=== PATIENT | male | born 1985 | race Hispanic/Latino ===

== ENCOUNTER 2017-09-14 22:48 | Emergency (ER) | payer OTHER ==
[2017-09-15 00:03] LABS: Absolute Lymphocytes (CBC) 1.1 K/uL (0.7-4.9); Absolute Monocytes 0.4 K/uL (0.1-1.3); Absolute Neutrophil 4.7 K/uL (1.8-8.0); Basophils % 0.5 % (0-1.3); Eosinophils % 1.3 % (0-4.4); Hematocrit 41.8 % (39.6-49.0); MCH 30.7 pg (27.0-35.0); MCV 92.1 fL (80-100); MPV 8.4 fL (7.6-11.3); RBC Red Blood Cell Count 4.54 M/uL (4.33-5.43)
[2017-09-15 00:05] LABS: Protime INR 1.06
[2017-09-15 00:10] LABS: Bicarbonate 27 mEq/L (21-31); Glucose Level 123 mg/dL (65-120); Potassium 3.2 mEq/L (3.6-5.0); Sodium Level 138 mEq/L (135-145)
[2017-09-15 00:16] LABS: ALT/SGPT 16 IU/L (10-60); AST/SGOT 24 IU/L (10-42); Albumin 4.5 g/dL (3.2-5.5); Alkaline Phosphatase 83 IU/L (42-121); BUN Blood Urea Nitrogen 16 mg/dL (6-20); Bilirubin Direct 0.1 mg/dL (0-0.2); Protein, Total 8.2 g/dL (6.0-8.3)
[2017-09-15 00:17] LABS: Alcohol Serum/Plasma < 10 mg/dl; Salicylates Level < 4.0 mg/dl (<30)
[2017-09-15 03:43] LABS: Barbiturates NEGATIVE; Benzodiazepines POSITIVE; Cocaine NEGATIVE; METHAMPHETAM NEGATIVE; Opiates NEGATIVE; Phencyclidine NEGATIVE; THC Cannibis NEGATIVE
[2017-09-15 03:48] LABS: Urine Blood NEGATIVE (NEG); Urine Glucose NEGATIVE (NEG); Urine Protein NEGATIVE (NEG); Urine Specific Gravity 1.025 (1.005-1.030)
--- NOTE | 2017-09-15 12:21 | EDPHYS ---
Physician Documentation [facility] Name: Nikko Bales Age: 32 yrs Sex: Male : 1985 Arrival Date: 09/14/2017 Time: 22:51 Bed 19 Private MD: ED Physician Corky Wilcox HPI: 09/14 23:15 This 32 yrs old Male presents to ER via EMS with unknown complaint. pkl 23:15 The patient presents to the emergency department with combative. Onset: The pkl symptoms/episode began/occurred 3 day(s) ago, Family decided to call ambulance tonight. Past psychiatric history: Prior diagnosis: schizophrenia. Historical: - Allergies: 22:56 No Known Allergies; bp - Home Meds: 22:56 Geodon 40 mg Oral cap 1 cap 2 times per day [Active]; levothyroxine 75 mcg tab 1 tab bp once daily [Active]; - PMHx: 22:56 Hypothyroidism; Schizophrenia; bp - Immunization history:: Adult Immunizations up to date. - Social history:: Smoking status: Patient/guardian denies using tobacco. ROS: 23:15 Eyes: Negative for injury, pain, redness, and discharge, ENT: Negative for injury, pkl pain, and discharge, Neck: Negative for injury, pain, and swelling, Cardiovascular: Negative for chest pain, palpitations, and edema, Respiratory: Negative for shortness of breath, cough, wheezing, and pleuritic chest pain, Abdomen/GI: Negative for abdominal pain, nausea, vomiting, diarrhea, and constipation, Back: Negative for injury and pain, : Negative for injury, bleeding, discharge, and swelling, MS/Extremity: Negative for injury and deformity, Skin: Negative for injury, rash, and discoloration, Neuro: Negative for headache, weakness, numbness, tingling, and seizure. 23:15 Psych: Positive for Aggressive behavior, combative. Exam: 23:15 Head/Face: Normocephalic, atraumatic. Eyes: Pupils equal round and reactive to light, pkl extra-ocular motions intact. Lids and lashes normal. Conjunctiva and sclera are non-icteric and not injected. Cornea within normal limits. Periorbital areas with no swelling, redness, or edema. ENT: Nares patent. No nasal discharge, no septal abnormalities noted. Tympanic membranes are normal and external auditory canals are clear. Oropharynx with no redness, swelling, or masses, exudates, or evidence of obstruction, uvula midline. Mucous membranes moist. Neck: Trachea midline, no thyromegaly or masses palpated, and no cervical lymphadenopathy. Supple, full range of motion without nuchal rigidity, or vertebral point tenderness. No Meningismus. Chest/axilla: Normal chest wall appearance and motion. Nontender with no deformity. No lesions are appreciated. Cardiovascular: Regular rate and rhythm with a normal S1 and S2. No gallops, murmurs, or rubs. Normal PMI, no JVD. No pulse deficits. Respiratory: Lungs have equal breath sounds bilaterally, clear to auscultation and percussion. No rales, rhonchi or wheezes noted. No increased work of breathing, no retractions or nasal flaring. Abdomen/GI: Soft, non-tender, with normal bowel sounds. No distension or tympany. No guarding or rebound. No evidence of tenderness throughout. Back: No spinal tenderness. No costovertebral tenderness. Full range of motion. Skin: Warm, dry with normal turgor. Normal color with no rashes, no lesions, and no evidence of cellulitis. MS/ Extremity: Pulses equal, no cyanosis. Neurovascular intact. Full, normal range of motion. Neuro: Awake and alert, GCS 15, oriented to person, place, time, and situation. Cranial nerves II-XII grossly intact. Motor strength 5/5 in all extremities. Sensory grossly intact. Cerebellar exam normal. Normal gait. 23:15 Psych: Behavior/mood is aggressive, combative. Vital Signs: 22:59 BP 119 / 75; Pulse 95; Resp 16; Pulse Ox 96% ; Weight 90.72 kg; bp 05/01 00:03 BP 121 / 69; Pulse 86; Resp 22; Pulse Ox 100% on R/A; mt 00:51 BP 118 / 65; Pulse 75; Resp 16; Pulse Ox 99% on R/A; mt 01:28 BP 121 / 67; Pulse 71; Resp 22; Pulse Ox 100% ; bp 02:19 BP 122 / 76; Pulse 91; Resp 18; Pulse Ox 99% on R/A; mt 02:56 BP 124 / 76; Pulse 91; Resp 16; Pulse Ox 99% on R/A; mt 04:20 BP 123 / 68; Pulse 88; Resp 18; Pulse Ox 99% on R/A; mt 05:35 BP 127 / 86; Pulse 78; Resp 18; Pulse Ox 99% on R/A; mt 07:00 BP 126 / 67; Pulse 75; Resp 16; Pulse Ox 99% ; Pain 0/10; jl7 09:33 BP 123 / 67; Pulse 79; Resp 16; Pulse Ox 99% ; jl7 11:06 BP 110 / 70; Pulse 78; Resp 18; Pulse Ox 97% on R/A; 5 MDM: 09/14 23:09 Patient medically screened. pkl 09/14 23:44 Order name: Acetaminophen; Complete Time: 00:31 pkl 09/14 23:44 Order name: Basic Metabolic Panel; Complete Time: 00:31 pkl 09/14 23:44 Order name: CBC with Diff; Complete Time: 00:31 pkl 09/14 23:44 Order name: ETOH Level; Complete Time: 00:31 pkl 09/14 23:44 Order name: Hepatic Function; Complete Time: 00:31 pkl 09/14 23:44 Order name: PT-INR; Complete Time: 00:31 pkl 09/14 23:10 Order name: Restraint:Violent/Self Destructive (Adult:18yo or >); Complete Time: 23:10 bp 09/14 23:44 Order name: Ptt, Activated; Complete Time: 00:31 pkl 09/14 23:44 Order name: Salicylate; Complete Time: 00:31 pkl 09/14 23:44 Order name: Urine Drug Screen; Complete Time: 05:50 pkl 09/14 23:44 Order name: EKG; Complete Time: 23:45 pkl 09/14 23:44 Order name: EKG - Nurse/Tech; Complete Time: 23:59 pkl 09/15 03:30 Order name: Urine Dipstick--Ancillary (enter results); Complete Time: 05:50 em1 09/14 23:44 Order name: IV Saline Lock; Complete Time: 00:12 pkl 09/14 23:44 Order name: Labs collected and sent; Complete Time: 23:50 pkl 09/14 23:44 Order name: Urine Dipstick-Ancillary (obtain specimen); Complete Time: 03:28 pkl Administered Medications: 09/15 06:42 Not Given (Patient Refused): K-Dur 40 mEq PO once bp Disposition: 09/15/17 12:21 Transfer ordered to Other Acute Care Facility. Diagnosis is Schizophrenia. - Reason for transfer: Higher level of care. - Accepting physician is [facility]. - Condition is Stable. Signatures: Dispatcher [employer] Corky Cid MD MD pkl Leal, Jahala, RN RN [id number] Alex Cortez RN RN bp
--- NOTE | 2017-09-15 12:21 | ER ---
Nurse's Notes [facility] Name: Nikko Bales Age: 32 yrs Sex: Male : 1985 Arrival Date: 09/14/2017 Time: 22:51 Bed 19 Private MD: Diagnosis: Schizophrenia Presentation: 09/14 22:54 Presenting complaint: EMS states: WE GOT CALLED OUT BECAUSE HE WAS COMBATIVE WITH THE bp FAMILY. Transition of care: patient was not received from another setting of care. Onset of symptoms is unknown. Initial Sepsis Screen: Does the patient meet any 2 criteria? No. Patient's initial sepsis screen is negative. Does the patient have a suspected source of infection? No. Patient's initial sepsis screen is negative. Care prior to arrival: Medication(s) given: 2MG ATIVAN IM. 22:54 Method Of Arrival: EMS: [facility] bp 22:54 Acuity: JUAN CARLOS 2 bp Triage Assessment: 22:56 General: Appears distressed, comfortable, Behavior is agitated, combative, bp uncooperative. Pain: Denies pain. EENT: No deficits noted. Neuro: Level of Consciousness is REFUSING TO ANSWER. Oriented to REFUSING TO ANSWER. Cardiovascular: No deficits noted. Respiratory: Airway is patent Respiratory effort is even, unlabored, Respiratory pattern is regular, symmetrical. GI: No signs and/or symptoms were reported involving the gastrointestinal system. : No signs and/or symptoms were reported regarding the genitourinary system. Derm: No deficits noted. Musculoskeletal: Circulation, motion, and sensation intact. Range of motion: intact in all extremities. Historical: - Allergies: 22:56 No Known Allergies; bp - Home Meds: 22:56 Geodon 40 mg Oral cap 1 cap 2 times per day [Active]; levothyroxine 75 mcg tab 1 tab bp once daily [Active]; - PMHx: 22:56 Hypothyroidism; Schizophrenia; bp - Immunization history:: Adult Immunizations up to date. - Social history:: Smoking status: Patient/guardian denies using tobacco. Screenin:10 Abuse screen: Denies threats or abuse. Denies injuries from another. Nutritional bp screening: No deficits noted. Tuberculosis screening: No symptoms or risk factors identified. Fall Risk None identified. Assessment: 23:05 General: Appears PT COMBATIVE WITH EMS ON SCENE. ON ARRIVAL PT REFUSING TO STAY IN BED. bp PT STATES "I WANNA SPIT." PT PROVIDED WITH EMESIS BAG. PT THEN STATED "I WANNA SPIT ON YOU" AND SPIT ON STAFF. PT PHYSICALLY ESCORTED BACK TO ROOM AND INSTRUCTED TO STAY IN ROOM. PT EXITED ROOM AND SPIT ON STAFF AGAIN. PT REMOVED FROM COMMON AREA AND ESCORTED BACK TO ROOM. SURGICAL MASK AND 4 POINT RESTRAINTS PLACED FOR STAFF SAFETY. 09/15 00:00 Reassessment: PT SEEN BY MENTAL HEALTH DEPUTY. MENTAL HEALTH DEPUTY DECLINED TO TRANSPORT PT TO MENTAL HEALTH FACILITY WITHOUT MEDICAL SCREENING. PT REMAINS UNCOOPERATIVE, SPEECH PRESSURED AND RAMBLING. 01:27 Reassessment: [facility] SCREENER PENDING. PT CONTINUING TO REFUSE VERBAL DIRECTION AND bp DE-ESCALATION. 02:30 Reassessment: [facility] SCREENER AT B/S. PT SPEECH PRESSURED, LOUD AND RAMBLING. bp 03:00 Reassessment: [facility] RECOMMENDING INPATIENT. PT NOT ABLE TO VERBALIZE RESTRAINT bp RELEASE CRITERIA, BUT FOLLOWING VERBAL REDIRECTION. RESTRAINTS RELEASED AT THIS TIME. 04:57 Reassessment: ALL CURRENT STUDIES COMPLETED, PT RESTING QUIETLY, FAMILY AT B/S. bp AWAITING RESPONSE FOR PSYCHIATRIC FACILITIES. 05:02 Reassessment: REPORT TO [facility], NURSE TO NURSE. bp 07:00 Reassessment: Pt laying in bed with eyes closed, respiration even and unlabored, no jl7 signs of distress noted at this time. 08:00 Reassessment: No changes from previously documented assessment. jl7 09:00 Reassessment: Pt sitting in bed eating, denies discomfort at this time. jl7 10:00 Reassessment: Pt's parent's at the bedside. jl7 Vital Signs: 09/14 22:59 BP 119 / 75; Pulse 95; Resp 16; Pulse Ox 96% ; Weight 90.72 kg; bp 09/15 00:03 BP 121 / 69; Pulse 86; Resp 22; Pulse Ox 100% on R/A; mt 00:51 BP 118 / 65; Pulse 75; Resp 16; Pulse Ox 99% on R/A; mt 01:28 BP 121 / 67; Pulse 71; Resp 22; Pulse Ox 100% ; bp 02:19 BP 122 / 76; Pulse 91; Resp 18; Pulse Ox 99% on R/A; mt 02:56 BP 124 / 76; Pulse 91; Resp 16; Pulse Ox 99% on R/A; mt 04:20 BP 123 / 68; Pulse 88; Resp 18; Pulse Ox 99% on R/A; mt 05:35 BP 127 / 86; Pulse 78; Resp 18; Pulse Ox 99% on R/A; mt 07:00 BP 126 / 67; Pulse 75; Resp 16; Pulse Ox 99% ; Pain 0/10; jl7 09:33 BP 123 / 67; Pulse 79; Resp 16; Pulse Ox 99% ; jl7 11:06 BP 110 / 70; Pulse 78; Resp 18; Pulse Ox 97% on R/A; 5 ED Course: 09/14 22:51 Patient arrived in ED. em1 22:54 Alex Cortez, RN is Primary Nurse. bp 22:56 Triage completed. bp 22:59 Arm band placed on left wrist. bp 23:09 Corky Wilcox MD is Attending Physician. pkl 23:10 Patient has correct armband on for positive identification. Bed in low position. Call bp light in reach. Side rails up X2. 09/15 00:00 Missed attempt(s): 20 gauge Bleeding controlled, band aid applied, catheter tip intact. bp 07:12 Primary Nurse role handed off by Alex Cortez, RN jl7 07:12 Britni Lewis, RN is Primary Nurse. jl7 09:36 Spoke with [facility] to let them know the patient has been off restraints for 6 ag hours. She will notify their powerhouse engineer and will re initiate transfer. She will call us back. 12:15 No provider procedures requiring assistance completed. Patient did not have IV access jl7 during this emergency room visit. Restraints: 09/14 23:00 Violent/Self Destructive Restraint: Order: obtained. Initiated September 14, 2017 at 23:00 bp Staff present during the Initiation of Restraint: ALEA PCT, MARTHA PCT, KENNETH RN, ADONIS GARRISON, CHRISTOPHE RN. Family Notification/Education: Education provided to family/significant other/legally authorized sales representative meats. Observed actions/behavior: severely aggressive, confusion/disorientation, difficulty remembering or follow instructions, impaired decision making, repeated attempts to get up from bed/chair without assistance. unable to follow instructions, Less restrictive alternatives attempted: decreased environmental stimuli, placed near Nurse station, reoriented to location, medicated for pain/anxiety, verbal de-escalation performed, Alternative interventions: Ineffective. Clinical justification for use: Violent/self destructing behavior impacts therapeutic environment. Poses a serious danger to physical safety of self \\T\\ others. Monitoring: Mental status: agitated/restless, confused. Cognition: poor judgement, poor safety awareness, Impulsive, poor attention/concentration, unable to follow commands, Circulation: Within defined parameters (based on Cardiovascular assessment). Skin integrity: Within defined parameters (based on Integumentary assessment) No injuries due to Restraints noted. Range of Motion: Performed. Hydration/Food: patient declined. Elimination/Hygiene: Patient declined. Restraint status: Soft wrist restraint (Right) Started. Soft wrist restraint (Left) Started. Soft ankle restraint (Right) Started. Soft ankle restraint (Left) Started. Readiness for Discontinue: Criteria not met. Patient still violent/self destructive and Alternative interventions still ineffective. Restraint continued. Face to Face Evaluatn: Immediate Situation: PT SPITTING ON STAFF AND ATTEMPTING OTHER FORMS OF ASSAULT, REFUSING VERBAL REORIENTATION Response of Patient to Restraint: PT MENTAL STATUS DISORIENTED Medical \\T\\ Behavioral condition: SCHIZOPHRENIA WITH QUESTIONABLE MEDICATION COMPLIANCE Continue Restraint. MD Notified of Evaluation result: Corky Wilcox MD. 23:15 Violent/Self Destructive Restraint: Observed actions/behavior: severely aggressive, bp confusion/disorientation, difficulty remembering or follow instructions, impaired decision making, unable to follow instructions, Less restrictive alternatives attempted: decreased environmental stimuli, placed near Nurse station, reoriented to location, verbal de-escalation performed, Alternative interventions: Ineffective. Clinical justification for use: Violent/self destructing behavior impacts therapeutic environment. Poses a serious danger to physical safety of self \\T\\ others. Monitoring: Restraint status: Soft wrist restraint (Right) Continued. Soft wrist restraint (Left) Continued. Soft ankle restraint (Right) Continued. Soft ankle restraint (Left) Continued. Readiness for Discontinue: Criteria not met. Patient still violent/self destructive and Alternative interventions still ineffective. Restraint continued. 23:30 Violent/Self Destructive Restraint: Observed actions/behavior: bp confusion/disorientation, difficulty remembering or follow instructions, impaired decision making, repeated attempts to get up from bed/chair without assistance. unable to follow instructions, Less restrictive alternatives attempted: decreased environmental stimuli, placed near Nurse station, reoriented to location, verbal de-escalation performed, Alternative interventions: Ineffective. Clinical justification for use: Violent/self destructing behavior impacts therapeutic environment. Poses a serious danger to physical safety of self \\T\\ others. Monitoring: Mental status: agitated/restless, confused. Cognition: poor judgement, poor safety awareness, Impulsive, poor attention/concentration, unable to follow commands, Circulation: Within defined parameters (based on Cardiovascular assessment). No injuries due to Restraints noted. Restraint status: Soft wrist restraint (Right) Soft wrist restraint (Left) Soft ankle restraint (Right) Continued. Soft ankle restraint (Left) Continued. Mitt secured (Right) Readiness for Discontinue: Criteria not met. Patient still violent/self destructive and Alternative interventions still ineffective. Restraint continued. 23:45 Violent/Self Destructive Restraint: Initiated September 14, 2017 at 23:45 Observed bp actions/behavior: confusion/disorientation, difficulty remembering or follow instructions, impaired decision making, unable to follow instructions, Less restrictive alternatives attempted: decreased environmental stimuli, placed near Nurse station, medications evaluated, verbal de-escalation performed, Alternative interventions: Ineffective. Clinical justification for use: Violent/self destructing behavior impacts therapeutic environment. Poses a serious danger to physical safety of self \\T\\ others. Monitoring: Mental status: Cognition: poor judgement, poor safety awareness, poor attention/concentration, unable to follow commands, Circulation: Within defined parameters (based on Cardiovascular assessment). Skin integrity: Within defined parameters (based on Integumentary assessment) No injuries due to Restraints noted. Restraint status: Soft wrist restraint (Right) Continued. Soft wrist restraint (Left) Continued. Soft ankle restraint (Right) Continued. Soft ankle restraint (Left) Continued. Readiness for Discontinue: Criteria not met. Patient still violent/self destructive and Alternative interventions still ineffective. Restraint continued. 09/15 00:00 Violent/Self Destructive Restraint: Observed actions/behavior: bp confusion/disorientation, difficulty remembering or follow instructions, impaired decision making, repeated attempts to get up from bed/chair without assistance. unable to follow instructions, Less restrictive alternatives attempted: decreased environmental stimuli, placed near Nurse station, reoriented to location, verbal de-escalation performed, Alternative interventions: Ineffective. Clinical justification for use: Violent/self destructing behavior impacts therapeutic environment. Poses a serious danger to physical safety of self \\T\\ others. Monitoring: Mental status: agitated/restless, Cognition: poor judgement, poor safety awareness, Impulsive, poor attention/concentration, unable to follow commands, Circulation: Within defined parameters (based on Cardiovascular assessment). Skin integrity: Within defined parameters (based on Integumentary assessment) No injuries due to Restraints noted. Range of Motion: declined. Hydration/Food: patient declined. Elimination/Hygiene: Patient declined. Restraint status: Soft wrist restraint (Right) Continued. Soft wrist restraint (Left) Continued. Soft ankle restraint (Right) Continued. Soft ankle restraint (Left) Continued. Readiness for Discontinue: Criteria not met. Patient still violent/self destructive and Alternative interventions still ineffective. Restraint continued. 00:15 Violent/Self Destructive Restraint: Observed actions/behavior: bp confusion/disorientation, difficulty remembering or follow instructions, impaired decision making, unable to follow instructions, Less restrictive alternatives attempted: decreased environmental stimuli, placed near Nurse station, reoriented to location, verbal de-escalation performed, Alternative interventions: Ineffective. Clinical justification for use: Violent/self destructing behavior impacts therapeutic environment. Poses a serious danger to physical safety of self \\T\\ others. Monitoring: Mental status: agitated/restless, confused. Cognition: poor judgement, poor safety awareness, Impulsive, poor attention/concentration, unable to follow commands, Restraint status: Soft wrist restraint (Right) Continued. Soft wrist restraint (Left) Continued. Soft ankle restraint (Right) Continued. Soft ankle restraint (Left) Continued. Readiness for Discontinue: Criteria not met. Patient still violent/self destructive and Alternative interventions still ineffective. Restraint continued. 00:30 Violent/Self Destructive Restraint: Observed actions/behavior: bp confusion/disorientation, difficulty remembering or follow instructions, impaired decision making, unable to follow instructions, Less restrictive alternatives attempted: decreased environmental stimuli, placed near Nurse station, reoriented to location, verbal de-escalation performed, Alternative interventions: Ineffective. Clinical justification for use: Violent/self destructing behavior impacts therapeutic environment. Poses a serious danger to physical safety of self \\T\\ others. Monitoring: Mental status: agitated/restless, confused. Cognition: poor judgement, poor safety awareness, Impulsive, poor attention/concentration, unable to follow commands, Circulation: Within defined parameters (based on Cardiovascular assessment). Skin integrity: Within defined parameters (based on Integumentary assessment) No injuries due to Restraints noted. Restraint status: Soft wrist restraint (Right) Continued. Soft wrist restraint (Left) Continued. Soft ankle restraint (Right) Continued. Soft ankle restraint (Left) Continued. Readiness for Discontinue: Criteria not met. Patient still violent/self destructive and Alternative interventions still ineffective. Restraint continued. 00:45 Violent/Self Destructive Restraint: Observed actions/behavior: bp confusion/disorientation, difficulty remembering or follow instructions, impaired decision making, unable to follow instructions, Less restrictive alternatives attempted: decreased environmental stimuli, placed near Nurse station, reoriented to location, verbal de-escalation performed, Alternative interventions: Ineffective. Clinical justification for use: Violent/self destructing behavior impacts therapeutic environment. Poses a serious danger to physical safety of self \\T\\ others. Monitoring: Mental status: agitated/restless, confused. Cognition: poor judgement, poor safety awareness, Impulsive, poor attention/concentration, unable to follow commands, Circulation: Within defined parameters (based on Cardiovascular assessment). Skin integrity: Within defined parameters (based on Integumentary assessment) No injuries due to Restraints noted. Restraint status: Soft wrist restraint (Right) Continued. Soft wrist restraint (Left) Continued. Soft ankle restraint (Right) Continued. Soft ankle restraint (Left) Continued. Readiness for Discontinue: Criteria not met. Patient still violent/self destructive and Alternative interventions still ineffective. Restraint continued. 01:00 Violent/Self Destructive Restraint: Observed actions/behavior: bp confusion/disorientation, difficulty remembering or follow instructions, impaired decision making, repeated attempts to get up from bed/chair without assistance. unable to follow instructions, Less restrictive alternatives attempted: decreased environmental stimuli, placed near Nurse station, reoriented to location, verbal de-escalation performed, Alternative interventions: Ineffective. Clinical justification for use: Violent/self destructing behavior impacts therapeutic environment. Poses a serious danger to physical safety of self \\T\\ others. Monitoring: Mental status: agitated/restless, confused. Cognition: poor judgement, poor safety awareness, Impulsive, poor attention/concentration, unable to follow commands, Circulation: Within defined parameters (based on Cardiovascular assessment). Skin integrity: Within defined parameters (based on Integumentary assessment) No injuries due to Restraints noted. Restraint status: Soft wrist restraint (Right) Continued. Soft wrist restraint (Left) Continued. Soft ankle restraint (Right) Continued. Soft ankle restraint (Left) Continued. Readiness for Discontinue: Criteria not met. Patient still violent/self destructive and Alternative interventions still ineffective. Restraint continued. 01:15 Violent/Self Destructive Restraint: Observed actions/behavior: bp confusion/disorientation, difficulty remembering or follow instructions, impaired decision making, unable to follow instructions, Less restrictive alternatives attempted: decreased environmental stimuli, placed near Nurse station, reoriented to location, verbal de-escalation performed, Alternative interventions: Ineffective. Clinical justification for use: Violent/self destructing behavior impacts therapeutic environment. Poses a serious danger to physical safety of self \\T\\ others. Monitoring: Mental status: agitated/restless, confused. Cognition: poor judgement, poor safety awareness, Impulsive, poor attention/concentration, unable to follow commands, Circulation: Within defined parameters (based on Cardiovascular assessment). Skin integrity: Within defined parameters (based on Integumentary assessment) No injuries due to Restraints noted. Restraint status: Soft wrist restraint (Right) Continued. Soft wrist restraint (Left) Continued. Soft ankle restraint (Right) Continued. Soft ankle restraint (Left) Mitt secured (Right) Readiness for Discontinue: Criteria not met. Patient still violent/self destructive and Alternative interventions still ineffective. Restraint continued. 01:30 Violent/Self Destructive Restraint: Observed actions/behavior: bp confusion/disorientation, difficulty remembering or follow instructions, impaired decision making, repeated attempts to get up from bed/chair without assistance. unable to follow instructions, Less restrictive alternatives attempted: decreased environmental stimuli, placed near Nurse station, reoriented to location, verbal de-escalation performed, Alternative interventions: Ineffective. Clinical justification for use: Violent/self destructing behavior impacts therapeutic environment. Poses a serious danger to physical safety of self \\T\\ others. Monitoring: Mental status: agitated/restless, confused. Cognition: poor judgement, poor safety awareness, Circulation: Within defined parameters (based on Cardiovascular assessment). Skin integrity: Within defined parameters (based on Integumentary assessment) No injuries due to Restraints noted. Restraint status: Soft wrist restraint (Right) Continued. Soft wrist restraint (Left) Continued. Soft ankle restraint (Right) Continued. Soft ankle restraint (Left) Continued. Readiness for Discontinue: Criteria not met. Patient still violent/self destructive and Alternative interventions still ineffective. Restraint continued. 01:45 Violent/Self Destructive Restraint: Observed actions/behavior: bp confusion/disorientation, difficulty remembering or follow instructions, impaired decision making, repeated attempts to get up from bed/chair without assistance. unable to follow instructions, Less restrictive alternatives attempted: decreased environmental stimuli, placed near Nurse station, reoriented to location, medications evaluated, verbal de-escalation performed, Alternative interventions: Ineffective. Clinical justification for use: Violent/self destructing behavior impacts therapeutic environment. Poses a serious danger to physical safety of self \\T\\ others. Monitoring: Mental status: agitated/restless, confused. Cognition: poor judgement, poor safety awareness, Impulsive, poor attention/concentration, unable to follow commands, Circulation: Within defined parameters (based on Cardiovascular assessment). Skin integrity: Within defined parameters (based on Integumentary assessment) No injuries due to Restraints noted. Restraint status: Soft wrist restraint (Right) Continued. Soft wrist restraint (Left) Continued. Soft ankle restraint (Right) Continued. Soft ankle restraint (Left) Continued. Readiness for Discontinue: Criteria not met. Patient still violent/self destructive and Alternative interventions still ineffective. Restraint continued. 02:00 Violent/Self Destructive Restraint: Observed actions/behavior: bp confusion/disorientation, difficulty remembering or follow instructions, impaired decision making, unable to follow instructions, Less restrictive alternatives attempted: decreased environmental stimuli, placed near Nurse station, reoriented to location, verbal de-escalation performed, Alternative interventions: Ineffective. Clinical justification for use: Violent/self destructing behavior impacts therapeutic environment. Poses a serious danger to physical safety of self \\T\\ others. Monitoring: Mental status: agitated/restless, confused. Cognition: poor judgement, poor safety awareness, Impulsive, poor attention/concentration, unable to follow commands, Circulation: Within defined parameters (based on Cardiovascular assessment). Skin integrity: Within defined parameters (based on Integumentary assessment) No injuries due to Restraints noted. Range of Motion: declined. Hydration/Food: patient declined. Elimination/Hygiene: Patient declined. Restraint status: Soft wrist restraint (Right) Soft wrist restraint (Left) Continued. 02:15 Violent/Self Destructive Restraint: Observed actions/behavior: bp confusion/disorientation, difficulty remembering or follow instructions, impaired decision making, repeated attempts to get up from bed/chair without assistance. unable to follow instructions, Less restrictive alternatives attempted: Alternative interventions: Effective. Monitoring: Restraint status: Readiness for Discontinue: Criteria not met. Patient still violent/self destructive and Alternative interventions still ineffective. Restraint continued. 02:30 Violent/Self Destructive Restraint: Observed actions/behavior: bp confusion/disorientation, difficulty remembering or follow instructions, impaired decision making, unable to follow instructions, Less restrictive alternatives attempted: decreased environmental stimuli, placed near Nurse station, reoriented to location, verbal de-escalation performed, Alternative interventions: Ineffective. Clinical justification for use: Violent/self destructing behavior impacts therapeutic environment. Poses a serious danger to physical safety of self \\T\\ others. Monitoring: Mental status: agitated/restless, confused. Cognition: Restraint status: Soft wrist restraint (Right) Continued. Soft wrist restraint (Left) Continued. Soft ankle restraint (Right) Continued. Soft ankle restraint (Left) Continued. Readiness for Discontinue: Criteria not met. Patient still violent/self destructive and Alternative interventions still ineffective. Restraint continued. 02:45 Violent/Self Destructive Restraint: Observed actions/behavior: severely aggressive, bp confusion/disorientation, difficulty remembering or follow instructions, impaired decision making, unable to follow instructions, Less restrictive alternatives attempted: placed near Nurse station, reoriented to location, verbal de-escalation performed, Alternative interventions: Ineffective. Clinical justification for use: Violent/self destructing behavior impacts therapeutic environment. Poses a serious danger to physical safety of self \\T\\ others. Monitoring: Cognition: poor safety awareness, Impulsive, poor attention/concentration, unable to follow commands, Circulation: Within defined parameters (based on Cardiovascular assessment). Skin integrity: Within defined parameters (based on Integumentary assessment) No injuries due to Restraints noted. Restraint status: Soft wrist restraint (Right) Continued. Soft ankle restraint (Right) Readiness for Discontinue: Criteria not met. Patient still violent/self destructive and Alternative interventions still ineffective. Restraint continued. Violent/Self Destructive Restraint: Observed actions/behavior: . 03:00 Violent/Self Destructive Restraint: Less restrictive alternatives attempted: placed bp near Nurse station, reoriented to location, verbal de-escalation performed, Alternative interventions: Effective. Monitoring: Cognition: appropriate safety awareness, appropriate for developmental age, appropriate attention/concentration, follow commands, Restraint status: Soft wrist restraint (Right) Discontinued. Soft wrist restraint (Left) Discontinued. Soft ankle restraint (Right) Discontinued. Soft ankle restraint (Left) Discontinued. Readiness for Discontinue: Release criteria met. No longer exhibiting violent or self destructive behavior. Alt interventions effective. Administered Medications: 06:42 Not Given (Patient Refused): K-Dur 40 mEq PO once bp Outcome: 12:15 Transferred by ground EMS to other acute care facility, Transfer form completed. [facility] 12:15 Condition: stable 12:15 Discharge instructions given to patient, family, Instructed on the need for transfer, Demonstrated understanding of instructions. 12:21 ER care complete, transfer ordered by MD. bone 12:21 Patient left the ED. [email or web address] Signatures: Corky Wilcox MD MD pkl Martinez, Martha 1 Misha, Rafia Slaughter [facility] Britni Lewis RN RN [email or web address] Elias Urbinaah Alex Hargrove RN RN bp Corrections: (The following items were deleted from the chart) 09/14 23:11 22:59 BP 119 / 75; Pulse 95bpm; Resp 16bpm; Pulse Ox 96%; bp bp 09/15 03:34 00:00 Inserted saline lock: 20 gauge in right forearm, using aseptic technique. Blood bp collected. bp
[2017-09-15 12:41] VITALS: BP 110/70; O2SAT 97
--- NOTE | 2017-09-15 14:38 | EKG ---
Test Date: 2017-09-14 Test Time: 23:54:34 Home Care Scheduler: ISAIAH MEASUREMENT RESULTS: Intervals: Rate: 85 TN: 154 QRSD: 102 QT: 384 QTc: 456 [place]: P: 68 TN: 154 QRS: 84 T: 66 INTERPRETIVE STATEMENTS: Normal sinus rhythm Possible Left atrial enlargement Borderline ECG Compared to ECG 02/16/2014 08:09:38 Prolonged QT interval no longer present Electronically Signed On 09-15-17 14:34:17 CDT by Micheal Nelson
== END 2017-09-15 12:21 ==
LOC: ER 22:48
DX: F20.9 Schizophrenia, unspecified (principal); E03.9 Hypothyroidism, unspecified; Z78.1 Physical restraint status
CPT/HCPCS: 36415; 80048; 80076; 80307; 80320; 80329; 81003; 85025; 85610; 85730; 93005; 99285

== ENCOUNTER 2020-05-06 18:31 | Emergency (ER) | payer OTHER ==
--- OUTSIDE RECORDS SUMMARY | 2020-05-06 18:34 | XMS REPORT | Continuity of Care Document ---
:1985 Author Organization [facility] t Address [address] [place] [address] Care Team Providers Name Role Phone Lab, Adc Fam Pob I Attending Clinician Unavailable Problems Condition Condition Condition Status Onset Resolution Last Treating Co mments Source Name Details Category Date Date Treatment Clinician Date Hypothyroi Hypothyroi Problem Active 2018-05 [facility] dism dism 0-10 Family 00:00: Practic 00 e Anxiety Anxiety Problem Active 2018-05 [place] 0-10 Family 00:00: Practic 00 e Allergies, Adverse Reactions, Alerts This patient has no known allergies or adverse reactions. Social History Smoking Status Start Date Stop Date Source Never Smoker [facility] Medications Ordered Filled Start Stop Current Ordering Indication Dosage Frequency Signature Comments Components Source Medication Medication Date Date Medication? Clinician (SIG) Name Name Depakote ER Depakote ER No 1 BID Depjacquelinete Sara 500 mg 500 mg ER 500 mg Family tablet,exte tablet,exte tablet,ext Practic nded nded ended e release release release Take 1 Take 1 Take 1 tablet tablet tablet twice a day twice a day twice a by oral by oral day by route. route. oral route. Geodon 40 Geodon 40 No 1capsul BID Geodon 40 Village mg capsule mg capsule e(s) mg capsule Family Take 1 Take 1 Take 1 Practic capsule capsule capsule e twice a day twice a day twice a by oral by oral day by route. route. oral route. levothyroxi levothyroxi No 1capsul Q1D levothyrox [facility] ne 100 mcg ne 100 mcg e(s) ine 100 Family capsule capsule mcg Practic Take 1 Take 1 capsule e capsule capsule Take 1 every day every day capsule by oral by oral every day route. route. by oral route. Immunizations Ordered Immunization Filled Immunization Date Status Commen ts Source Name Name influenza, influenza, 2020-02-16 Completed [facility] injectable, injectable, 00:00:00 Practice quadrivalent quadrivalent Vital Signs Vital Name Observation Time Observation Value Comments Source Height 2020-02-28 00:00:00 72 [in_i] [facility] BMI (Body Mass 2020-02-28 00:00:00 35.3 kg/m2 [place] Index) Practice Body Weight 2020-02-28 00:00:00 260 [lb_av] [facility] Procedures This patient has no known procedures. Plan of Care Planned Activity Planned Date Details Comments Source Instructions [facility] Encounters Start End Encounter Admission Attending Care Care Encounter Source Date/Time Date/Time Type Type Clinicians Facility Department ID 2020-03-07 2020-03-07 Laboratory Lab, [facility] [id number] 14:53:05 15:13:05 Only [facility] [id number] [place] [id number] Professio [id number] nal [address] 2020-02-28 2020-02-28 Zuleima [facility] [place] - [id number] V ill[place] 00:00:00 00:00:00 [facility] 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 Results This patient has no known results.
--- OUTSIDE RECORDS SUMMARY | 2020-05-06 18:34 | XMS REPORT | Summary of Care ---
:1985 Author Organization [facility] Address [address] [place] [id number] Care Team Providers Name Role Phone Pcp, Patient Does Not Have A Primary Care Provider [phone] Reason for Visit Reason Comments Exposure covid Encounter Details Date Type Department Care Team Description 03/07/2020 Laboratory Only [facility] [place] Family Kaitlynn Jeffries PA [address] [place] [address] [place] [address] Exposure to Medicine - [facility], Adc Fam Pob I SARS-associated [address] [place] [address] coronaviru s ([address] Dx) [place] [address] Allergies Not on Filedocumented as of this encounter (statuses as of 03/07/2020) Medications Not on filedocumented as of this encounter (statuses as of 03/07/2020) Active Problems Not on filedocumented as of this encounter (statuses as of 03/07/2020) Social History Tobacco Use Types Packs/Day Years Used Date Never Assessed Sex Assigned at Date Recorded Not on file documented as of this encounter Last Filed Vital Signs Not on filedocumented in this encounter Nursing Notes Raissa Jacobs, JOHNNY - 03/07/2020 3:20 PM Allisonandrea Bales is a 35 year old male here for a Rule Out Covid-19 Nasopharyngeal Swab. Patient educatedon plan of care for visit, swabbing technique, risks and benefits of test and length of time to receive results. Verbal consent obtained to perform test. CDC Fact Sheet for Patients provided to patient. All droplet and contact precautions taken with appropriate PPE worn while interacting with patient. - Goggles - N95 Mask - Gloves - Gown RR=18 % O2 Sat=99 Patient swabbed using appropriate nasopharyngeal technique, and patient tolerated well. Patient was discharged in stable condition. RAISSA JACOBS RN 03/07/2020 2:58 PM documented in this encounter Plan of Treatment Name Type Priority Associated Diagnoses Order S chedule COVID-19 (PCR MOLECULAR LAB Routine Exposure to Expe cted: 03/07/2020, TESTING) SARS-associated Expires: coronavirus documented as of this encounter Results Not on filedocumented in this encounter Visit Diagnoses Diagnosis Exposure to SARS-associated coronavirus - Primary documented in this encounter Additional Health Concerns Infection Onset Date Last Indicated Resolved Time COVID-19 Rule Out 03/07/2020 03/07/2020 documented as of this encounter Insurance Payer Benefit Plan / Subscriber ID Effective Dates Phone Addre ss Type Group [facility] [id number] 2020-Pres Medicare Adv PLUS PLUS ent HMO CLASSIC/VALUE documented as of this encounter
--- OUTSIDE RECORDS SUMMARY | 2020-05-06 18:34 | XMS REPORT | Encounter Summary ---
:1985 Author Care Team Providers Name Role Phone Dr. Masood Duarte Primary Care Provider [phone] Samira Kline DO Primary Care Provider [phone] Reason for Visit TELE-AWV Annual Wellness Visit Male Instructions 1. Advance directive discussed w ith patient advance care planning: car e instructions advance care planning: car e instructions 2. Depression screening learning about depression 3. Schizophrenia 4. Hypothyroidism 5. Anxiety Discussion Note Patient denies any acute issues at this time. Patient encouraged to notify his pcp for any acute issues. Patient verbal ized understanding. Plan of Care Patient Instructions It was good to see you in the offic e today for your Medicare Annual Wellness Visit. You have been provided some information on healthy nutrition, including a diet rich in fruits and vegetables, minimizing simple carbohydrates, salt, and saturated fats. I want to encourage regular cardi ovascular exercise such as walking at le ast 30 minutes daily, 5 times per week. Please remember to schedule any preventi ve health measures that we talked about today. You have also been provided education on fall prevention and community- based lifestyle interventions to help reduce health risks and promote healthy living in your Annual Wellness folder. Screening Recommendations 1. Vaccines Pneumonia: Recommended today Influenza: Recommended today 2. Colorectal Cancer Screening: none yet Recommended today 3. Annual Prostate Screening 4. Annual Depression Screening 5. Annual Alc ohol Screening 6. Annual Fall Risk Scree ruben 7. Annual Health Risk Assessment It was good to speak with you virtually today for your Medicare Annual Wellness Visit. You have been provided some information on healthy nutrition, including a diet rich in fruits and vegetables, minimizing simple carbohydrates, salt, and saturated fats. I want to encourage regular cardi ovascular exercise such as walking at le ast 30 minutes daily, 5 times per week. Reminders Provider Appointments None recorded. Lab None recorded. Referral None recorded. Procedures None recorded. Surgeries None recorded. Imaging None recorded. Medications Name Start Date Depakote ER 500 mg tablet,extended release Take 1 tablet twice a day by oral route. Geodon 40 mg capsule Take 1 capsule twice a day by oral route. levothyroxine 100 mcg capsule Take 1 capsule every day by oral route. Medications Administered None recorded. Vitals Height Weight BMI 6 ft 260 lbs 35.3 kg/m2 Results Lab Results None recorded. Allergies Code Code System Name Reaction Severity Status Onset NKDA Problems Name Status Onset Date Source Hypothyroidism Active 02/24/2019 Anxiety Active 02/24/2019 Procedures None recorded. Vaccine List Vaccine Type influenza, injectable, quadrivalent 02/16/2020 Social History Tobacco Smoking Status Never Smoker Past Encounters Encounter Date Diagnosis Provider 02/28/2020 Advance Directive Discussed Zuleima Leal, MOLD DESIGNER: with Patient; Depression [address] [facility], [address], Screening; Schizophrenia; [place], [place] [phone], Ph. Hypothyroidism; Anxiety History of Present Illness Mini Cog Reported By: Patient Functional Ability: Personal/Social/ Draw a cloc k and write in the numbers in the correct place, and set the t lexy to 10 minutes after 11 o'clock was completed correctly? No , 3 word recall: Your nurse or doctor will ask you to remember 3 w ords. In 5 minutes, they will ask you to repeat them. Patien t recalled 3 words Opioid Use Assessment Reported By: Patient Opioid Use Assessment:: Current Use of Opioids : no use of opioids (no further questions required) Note: <div>

This virtual visit was performed with live video and audio.</div><div>
</div>[facility] ( INDER: __Zuleima Riojas )reviewed the Virtual Care consent form verbally with patient. Patient {{did*|did not}} have questions. Any and all patient questions were addressed. Patient consented to health care services provided via [employer] [facility]. Patient was directed to the [facility] website to review the form in greater detail. Patient was informed that a physical copy of the consent would be mailed to his/her home. Patient confirmed that, upon receipt of the consent, that he/she will sign and return the form in the pre-addressed and stamped envelope.
I confirm that I received verbal consent from the patient for the virtual visit.
This telemedicine encounter was performed using live {{video and audio*|audio only because either patient did not have technology or unable to connect due to technical problems}}.
<strong>(for audio only)</strong> Total time spent with patient: {{50#| }} minutes. Review of Systems Comprehensive General Adult ROS Reported By: Patient Constitutional: Constitutional: no fever, no night sweats, no significant weight gain, no significant weight loss, no exercise intolerance Eyes: Eyes: no dry eyes, no vision change, no irritation ENMT: Ears: no difficulty hearing, no ear pain. Nose: no frequent nosebleeds, no nose problems , no sinus problems. Mouth/Throat: no sore throat, no bleeding gums, no snoring, no dry mouth, no mouth ulcers, no oral abnorm alities, no teeth problems Cardiovascular: Cardiovascular: no chest jessica n, no arm pain on exertion, no shortness of breath when wal todd, no shortness of breath when lying down, no palpitations, no known heart murmur, no lightheadedness Respiratory: Respiratory: no cough, no wh eezing, no shortness of breath, no coughing up blood, no sleep apnea Gastrointestinal: Gastrointestinal: no abdomin al pain, no nausea, no vomiting, no constipation, normal appe tite, no diarrhea, not vomiting blood, no dyspepsia, no GERD Genitourinary: Genitourinary: no incontinen ce, no difficulty urinating, no hematuria, no increased freq uency Musculoskeletal: Musculoskeletal: no muscle a ches, no muscle weakness, no arthralgias/joint pain, no b ack pain, no swelling in the extremities Integumentary: Skin: no abnormal mole, no j aundice, no rashes, no laceration Neurologic: Neurologic: no loss of consc iousness, no weakness, no numbness, no seizures, no di zziness, no migraines, no headaches, no tremor Psychiatric: Psych: no depression, no sle ep disturbances, feeling safe in a relationship, no alcohol abu se, no anxiety, no hallucinations, no suicidal thoughts Endocrine: Endocrine: no fatigue Hematologic/Lymphatic: Hematologic/Lymphatic no swo llen glands, no bruising, no excessive bleeding Allergic/Immunologic: Allergy/Immunologic: no runn y nose, no sinus pressure, no itching, no hives, no freque nt sneezing Physical Exam Telemedicine/Virtual Visit Reported By: Patient Constitutional: Level of Distress: NAD. Ambu lation: ambulating normally Psychiatric: Insight: good judgement. Men alice Status: active and alert, normal mood, normal affect. Orienta tion: to time, to place, to person. Memory: recent memory normal , remote memory normal"
[2020-05-06] MEDS ORDERED: ACETAMINOPHEN 500 MG TAB ONE (19:52)
--- NOTE | 2020-05-06 20:48 | RAD REPORT ---
EXAM DESCRIPTION: RAD - Chest Pa And Lat (2 Views) - 05/06/2020 8:42 pm CLINICAL HISTORY: COUGH Chest pain. COMPARISON: CHEST SINGLE VIEW dated 02/16/2014; CHEST PA AND LAT 2 VIEW dated 12/14/2009; CHEST SINGLE VIEW dated 07/30/2008 FINDINGS: Triangular airspace opacity in the right upper lobe is noted likely representing developin g pneumonia. The heart is normal in size. No displaced fractures. IMPRESSION: Developing right upper lobe pneumonia.
[2020-05-06] MEDS ORDERED: AMOX/K CLAV 875 MG TAB ONE (21:17)
[2020-05-06] MEDS ORDERED: AZITHROMYCIN 250 MG TAB ONE (21:17)
--- NOTE | 2020-05-06 21:32 | ER ---
Nurse's Notes [facility] Name: Nikko Bales Age: 35 yrs Sex: Male : 1985 Arrival Date: 05/06/2020 Time: 18:34 Bed 19 Private MD: Diagnosis: Pneumonia due to other specified infectious organisms-Right upper lobe Presentation: 05/06 19:03 Chief complaint: Parent and/or Guardian states: cough, runny nose, had a tingly iw sensation in his body and he feels cold and his feet feel cold, his food tasted different today , took two ibuprofen this morning at 715. Coronavirus screen: chills, cough unrelated to allergies, runny nose, loss of taste or smell, Client presents with at least one sign or symptom that may indicate coronavirus-19. Standard/surgical mask placed on the client. Provider contacted for isolation considerations. Ebola Screen: Patient negative for fever greater than or equal to 101.5 degrees Fahrenheit, and additional compatible Ebola Virus Disease symptoms Patient denies exposure to infectious person. Patient denies travel to an Ebola-affected area in the 21 days before illness onset. No symptoms or risks identified at this time. Initial Sepsis Screen: Does the patient meet any 2 criteria? No. Patient's initial sepsis screen is negative. Does the patient have a suspected source of infection? No. Patient's initial sepsis screen is negative. Risk Assessment: Do you want to hurt yourself or someone else? Patient reports no desire to harm self or others. Onset of symptoms was May 04, 2020. 19:03 Method Of Arrival: Ambulatory iw 19:03 Acuity: JUAN CARLOS 4 iw Triage Assessment: 21:40 General: Appears in no apparent distress. comfortable, Behavior is calm, cooperative. rr5 Historical: - Allergies: 19:08 No Known Allergies; iw - Home Meds: 19:08 divalproex 500 mg oral Tb24 2 tabs once daily [Active]; ziprasidone HCl 40 mg oral cap iw 1 cap 2 times per day [Active]; levothyroxine 100 mcg tab 1 tab once daily [Active]; - PMHx: 19:08 Hypothyroidism; Schizophrenia; iw - PSHx: 19:08 None; iw - Immunization history:: Adult Immunizations up to date. - Social history:: Smoking status: Patient denies any tobacco usage or history of. Screenin:00 Abuse screen: Denies threats or abuse. Denies injuries from another. Nutritional rr5 screening: No deficits noted. Tuberculosis screening: No symptoms or risk factors identified. Fall Risk None identified. Total Chávez Fall Scale indicates No Risk (0-24 pts). Assessment: 20:00 General: Appears in no apparent distress. comfortable, Behavior is calm, cooperative, rr5 appropriate for age, Reports chills for fever for feeling ill for fatigue for. 20:00 Pain: Denies pain. Neuro: Level of Consciousness is awake, alert, Oriented to person, rr5 place, time. Cardiovascular: Capillary refill < 3 seconds Patient's skin is warm and dry. Respiratory: Reports cough that is congestion runny nose Airway is patent Respiratory effort is even, unlabored, Respiratory pattern is regular, symmetrical, GI: Parent/caregiver reports the patient having loss of taste. : No signs and/or symptoms were reported regarding the genitourinary system. EENT: No signs and/or symptoms were reported regarding the EENT system. Derm: Skin is intact, is healthy with good turgor, Skin temperature is warm. Musculoskeletal: Capillary refill < 3 seconds. Vital Signs: 19:03 BP 130 / 62; Pulse 107; Resp 18 S; Temp 102.1(TE); Pulse Ox 98% on R/A; Weight 122.47 iw kg; Height 5 ft. 10 in. (177.80 cm); 21:00 BP 135 / 85; Pulse 102; Resp 18; Pulse Ox 98% ; rr5 21:45 BP 146 / 89; Pulse 98; Resp 19; Temp 100.3; Pulse Ox 100% ; rr5 19:03 Body Mass Index 38.74 (122.47 kg, 177.80 cm) ED Course: 18:34 Patient arrived in ED. rg4 19:06 Triage completed. iw 19:07 Ayd Gregory PA is PHCP. cp 19:07 Minesh Galindo MD is Attending Physician. cp 19:08 Arm band placed on. iw 20:00 Patient has correct armband on for positive identification. Bed in low position. Call rr5 light in reach. Adult w/ patient. 20:01 Troy Calderón RN is Primary Nurse. rr5 20:13 COVID swab sent to lab. Flu and/or RSV swab sent to lab. Strep swab sent to lab. rr5 20:21 XRAY Chest Pa And Lat (2 Views) In Process Unspecified. EDMS 21:50 No provider procedures requiring assistance completed. Patient did not have IV access rr5 during this emergency room visit. Administered Medications: 19:39 Drug: Tylenol 1000 mg Route: PO; dm5 20:40 Follow up: Response: No adverse reaction rr5 21:20 Drug: Augmentin 875 mg Route: PO; rr5 21:50 Follow up: Response: No adverse reaction rr5 21:20 Drug: Zithromax 500 mg Route: PO; rr5 21:50 Follow up: Response: No adverse reaction rr5 Outcome: 21:31 Discharge ordered by MD. cp 21:49 Discharged to home ambulatory, with family. rr5 21:49 Condition: stable 21:49 Discharge instructions given to patient, family, Instructed on discharge instructions, follow up and referral plans. medication usage, Demonstrated understanding of instructions, follow-up care, medications, Prescriptions given X 2. 21:50 Patient left the ED. rr5 Addendum: 05/08/2020 16:22 Addendum: COVID-19 Result: Positive result giiven to ED physician to notify pt. s v Physician: Brian Colunga MD Physician was able to contact pt and pt was notified of positive COVID-19 swab result. Physician answered pt questions. Signatures: Dispatcher [employer] EDGA Natalia Zhang RN RN dm5 Diane Pak RN RN sv Williams, Irene, RN RN iw Ady Gregory PA PA cp Garcia, Rubi 4 Troy Calderón RN RN rr5 Corrections: (The following items were deleted from the chart) 05/06 19:08 19:03 Pulse 107bpm; Resp 18bpm; Spontaneous; Pulse Ox 98% RA; Temp 102.1F Temporal; iw iw
--- NOTE | 2020-05-06 21:32 | EDPHYS ---
Physician Documentation [facility] Name: Nikko Bales Age: 35 yrs Sex: Male : 1985 Arrival Date: 05/06/2020 Time: 18:34 Bed 19 Private MD: ED Physician Minesh Galindo HPI: 05/06 19:50 This 35 yrs old Male presents to ER via Ambulatory with complaints of Cough, cp Congestion, Runny Nose. 19:50 The patient or guardian reports cough, described as moderate. cp 19:50 Associated signs and symptoms: Pertinent positives: fever, sore throat. cp 19:50 Patient in contact with father who recently tested positive for COVID-19. cp Historical: - Allergies: 19:08 No Known Allergies; iw - Home Meds: 19:08 divalproex 500 mg oral Tb24 2 tabs once daily [Active]; ziprasidone HCl 40 mg oral cap iw 1 cap 2 times per day [Active]; levothyroxine 100 mcg tab 1 tab once daily [Active]; - PMHx: 19:08 Hypothyroidism; Schizophrenia; iw - PSHx: 19:08 None; iw - Immunization history:: Adult Immunizations up to date. - Social history:: Smoking status: Patient denies any tobacco usage or history of. ROS: 20:00 Eyes: Negative for injury, pain, redness, and discharge. cp 20:00 Constitutional: Positive for chills, fever, Negative for poor PO intake. 20:00 ENT: Positive for sore throat. 20:00 Cardiovascular: Negative for chest pain. 20:00 Respiratory: Positive for cough, Negative for shortness of breath, wheezing. 20:00 Abdomen/GI: Negative for abdominal pain, nausea, vomiting, and diarrhea. 20:00 Neuro: Negative for altered mental status, headache, weakness. 20:00 All other systems are negative. cp Exam: 20:05 Constitutional: The patient appears in no acute distress, alert, awake, cp non-diaphoretic, non-toxic, well developed, well nourished. 20:05 Head/Face: Normocephalic, atraumatic. cp 20:05 Eyes: Periorbital structures: appear normal, Conjunctiva: normal, no exudate, no injection, Lids and lashes: appear normal, bilaterally. 20:05 ENT: External ear(s): are unremarkable, Nose: is normal, Mouth: Lips: moist, Oral mucosa: moist, Posterior pharynx: Airway: no evidence of obstruction, patent, Tonsils: no enlargement, no exudate, erythema, that is mild, exudate, is not appreciated. 20:05 Neck: ROM/movement: is normal, is supple, no meningismus, no nuchal rigidity, Lymph nodes: no appreciated lymphadenopathy. 20:05 Chest/axilla: Inspection: normal, Palpation: is normal, no crepitus, no tenderness. 20:05 Cardiovascular: Rate: tachycardic, Rhythm: regular. 20:05 Respiratory: the patient does not display signs of respiratory distress, Respirations: normal, no use of accessory muscles, no retractions, labored breathing, is not present, Breath sounds: bronchial sounds, that are mild, are heard diffusely, decreased breath sounds, are not appreciated, stridor, is not appreciated, + upper airway congestion. 20:05 Abdomen/GI: Inspection: abdomen appears normal, Palpation: abdomen is soft and non-tender, in all quadrants. 20:05 Skin: no rash present. 20:05 Neuro: Orientation: no acute changes, per family, Mentation: no acute changes, per family. Vital Signs: 19:03 BP 130 / 62; Pulse 107; Resp 18 S; Temp 102.1(TE); Pulse Ox 98% on R/A; Weight 122.47 iw kg; Height 5 ft. 10 in. (177.80 cm); 21:00 BP 135 / 85; Pulse 102; Resp 18; Pulse Ox 98% ; rr5 21:45 BP 146 / 89; Pulse 98; Resp 19; Temp 100.3; Pulse Ox 100% ; rr5 19:03 Body Mass Index 38.74 (122.47 kg, 177.80 cm) iw MDM: 19:34 Patient medically screened. cp 21:00 Differential Diagnosis: Bronchitis Influenza Viral Syndrome Pneumonia. cp 21:31 Data reviewed: vital signs, nurses notes, lab test result(s), radiologic studies, plain cp films. 21:31 Counseling: I had a detailed discussion with the patient and/or guardian regarding: the cp historical points, exam findings, and any diagnostic results supporting the discharge/admit diagnosis, lab results, radiology results, the need for outpatient follow up, a family practitioner, to return to the emergency department if symptoms worsen or persist or if there are any questions or concerns that arise at home. 21:31 ED course: VSS. Patient appears non-toxic and no signs of respiratory distress. Oxygen cp sats 100% on RA. Will discharge to home for continued monitoring. 05/06 19:59 Order name: COVID-19 cp 05/06 19:59 Order name: Influenza Screen (a \T\ B); Complete Time: 21:31 cp 05/06 19:59 Order name: XRAY Chest Pa And Lat (2 Views); Complete Time: 20:53 cp 05/06 20:53 Interpretation: Report reviewed. cp 05/06 19:59 Order name: Strep; Complete Time: 21:31 cp 05/06 21:14 Order name: Throat Culture EDMS Administered Medications: 19:39 Drug: Tylenol 1000 mg Route: PO; dm5 20:40 Follow up: Response: No adverse reaction rr5 21:20 Drug: Augmentin 875 mg Route: PO; rr5 21:50 Follow up: Response: No adverse reaction rr5 21:20 Drug: Zithromax 500 mg Route: PO; rr5 21:50 Follow up: Response: No adverse reaction rr5 Disposition: 05/07 02:55 Co-signature as Attending Physician, Minesh Galindo MD. [email or web address] Disposition: 05/06/20 21:31 Discharged to Home. Impression: Pneumonia due to other specified infectious organisms - Right upper lobe. - Condition is Stable. - Discharge Instructions: Community-Acquired Pneumonia, Adult, COVID-19. - Prescriptions for Augmentin 875- 125 mg Oral Tablet - take 1 tablet by ORAL route every 12 hours for 10 days; 20 tablet. Zithromax Z- Giovany 250 mg Oral Tablet - take 1 tablet by ORAL route as directed for 5 days Day 1 - take two (2) tablets one time. Day 2, 3, 4 , 5 take one (1) tablet once daily.; 6 tablet. Tessalon Perles 100 mg Oral Capsule - take 2 capsule by ORAL route every 8 hours As needed; 30 capsule. - Medication Reconciliation Form, Thank You Letter, Antibiotic Education, Prescription Opioid Use form. - Follow up: Private Physician; When: 1 - 2 days; Reason: Recheck today's complaints. - Problem is new. - Symptoms have improved. Signatures: Dispatcher [employer] EDMS Natalia Zhang RN RN [id number] Orin Joseph RN RN Ady Gamez PA PA cp Roque, Raymond, RN RN rr5 Minesh Galindo MD MD [email or web address] Corrections: (The following items were deleted from the chart) 05/06 21:50 21:31 05/06/2020 21:31 Discharged to Home. Impression: Pneumonia due to other specified rr5 infectious organisms - Right upper lobe. Condition is Stable. Forms are Medication Reconciliation Form, Thank You Letter, Antibiotic Education, Prescription Opioid Use. Follow up: Private Physician; When: 1 - 2 days; Reason: Recheck today's complaints. Problem is new. Symptoms have improved. cp
[2020-05-08 16:25] VITALS: BP 146/89; TEMP 100.3; O2SAT 100
== END 2020-05-06 21:50 | disposition home or self-care (01) ==
LOC: ER 18:31
DX: U07.1 COVID-19 (principal); J16.8 Pneumonia due to other specified infectious organisms; E03.9 Hypothyroidism, unspecified
CPT/HCPCS: 87070; 87081; 87804 ×2; 71046; 99284; U0002